=== PATIENT | male | born 1970 | race Caucasian/White ===

== ENCOUNTER 2021-07-22 06:19 | Day surgery (SDC) | payer OTHER ==
[~2021-07-22] VITALS: Ht 175.3 cm; Wt 100.0 kg
[~2021-07-22 06:19] MED LIST: CLIN-94 PO; HYDR-3164 PO; HYDROmorphone 2 MG/ML VIAL IVP PRN; IV RINGERS,LACTATED 1000ML 1,000 ML IV SCH; MORPHINE SULFATE 2 MG/ML INJ. IVP PRN; PROCHLORPERAZINE 10 MG/2 ML VIAL. IVP PRN; fentaNYL PF VIAL 100 MCG/2 ML VIAL IVP PRN
[2021-07-22 06:35] VITALS: BP 134/70
[2021-07-22] MEDS ORDERED: OMEP20TA8 PO (06:35)
[2021-07-22] MEDS ORDERED: TAMS0.4C97 PO (06:35)
[2021-07-22] MEDS ORDERED: PROPOFOL 10 MG/ML (20ML) VIAL. IV ONE (06:54)
[2021-07-22 08:24] VITALS: BP 115/64
--- NOTE | 2021-07-22 09:01 | CONS ---
DATE OF CONSULTATION: 07/22/2021 GASTROINTESTINAL CONSULTATION REFERRING PHYSICIAN: Pete Welch MD. REASON FOR CONSULTATION: Colorectal screening. HISTORY OF PRESENT ILLNESS: A 51-year-old male with past medical history significant for BPH, gastroesophageal reflux disease as well as basal cell carcinoma of the face, left femur fracture status post ORIF, and aortic valve tear/replacement, is seen for screening colon. Bowel habits are regular without diarrhea or constipation. There has been no melena and/or hematochezia. Family history is unrevealing for colon polyps or colon cancer. Otherwise without additional complaints, not undergone previous studies. PAST MEDICAL HISTORY: History of basal cell, history of femur fracture, history of aortic valve tear/repair, GERD, BPH. ALLERGIES: None. MEDICATIONS: Omeprazole 20 mg daily and tamsulosin, Flomax 0.4 mg daily. SOCIAL HISTORY: Previous smoker and drinker. FAMILY HISTORY: Suggestive of colon cancer, but not definitive. REVIEW OF SYSTEMS: HEENT: There is no decreased hearing or visual acuity issues. CARDIAC: There is no history of hypertension, palpitations, syncope. PULMONARY: History of tobaccoism. NEUROLOGIC: No stroke, migraine, neuropathy. PSYCHIATRIC: No mood swings, depression or insomnia. GASTROINTESTINAL: See history of present illness. HEMATOLOGIC: No bleeding, bruising coagulopathy. DERMATOLOGIC: No skin rashes or pruritus. RENAL: There is history of BPH. MUSCULOSKELETAL: History of the femur fracture. PHYSICAL EXAMINATION: VITAL SIGNS: Temperature is 97, pulse 64, respiratory rate 20. LUNGS: Clear. CARDIOVASCULAR: Reveals an S1, S2, without S3, S4 or appreciable murmur. ABDOMEN: With a soft abdomen, normal bowel sounds, without appreciable hepatosplenomegaly. EXTREMITIES: Reveals no cyanosis, clubbing or edema. IMPRESSION: Colorectal screening is warranted at this time. Risks and benefits of procedure including risk of hemorrhage and perforation were discussed. The patient is willing to proceed. Thank you, Dr. Welch for allowing us to consult and participate in this patient's care. MICHELLE/DEANGELO/CHELSEA DR: [place] TID: [id number] CC: Pete Welch MD
== END 2021-07-22 08:39 | disposition home or self-care (01) ==
LOC: ENDOS 06:19 → EEVIPCON 07:30 → ENDOS 08:39
PROVIDERS: ATTEND Internal Medicine Gastroenterology
DX: Z12.11 Encounter for screening for malignant neoplasm of colon (principal); K64.0 First degree hemorrhoids; K63.89 Other specified diseases of intestine; K21.9 Gastro-esophageal reflux disease without esophagitis; M19.90 Unspecified osteoarthritis, unspecified site; N40.0 Benign prostatic hyperplasia without lower urinary tract symptoms; C44.310 Basal cell carcinoma of skin of unspecified parts of face; Z87.891 Personal history of nicotine dependence; Z79.899 Other long term (current) drug therapy; Z98.890 Other specified postprocedural states; Z72.89 Other problems related to lifestyle
CPT/HCPCS: 45378; J2704; 45380